=== PATIENT | male | born 1995 | race Asian ===

== ENCOUNTER 2019-10-07 11:56 | Inpatient (IN) | payer MEDICAID, OTHER ==
[~2019-10-07] VITALS: Ht 170.2 cm; Wt 59.6 kg
[2019-10-07] MEDS ORDERED: LORazepam 2 MG/ML VIAL IM ONE ×2 (12:15→19:15)
[2019-10-07] MEDS ORDERED: HALOPERIDOL LACTATE 5 MG/ML VIAL IM ONE ×3 (12:15→19:15)
[2019-10-07] MEDS ORDERED: DiphenhydrAMINE HCL 50 MG/ML VIAL IM ONE ×2 (12:15→19:15)
[2019-10-07] MEDS ORDERED: HALOPERIDOL 5 MG TABLET PO PRN (14:30)
[2019-10-07] MEDS ORDERED: ZOLPIDEM TARTRATE 10 MG TABLET PO PRN (14:30)
[2019-10-07] MEDS ORDERED: LORazepam 2 MG TABLET PO PRN (14:30)
[2019-10-07 18:06] VITALS: BP 136/73
[2019-10-07] MEDS ORDERED: INFLUENZA VIRUS VACCINE QVS 2019-20 (3YR+)/PF 60 MCG/0.5 ML SYRINGE IM ONE (20:30)
[2019-10-08 08:23] VITALS: BP 112/67
[2019-10-08] MEDS: RisperiDONE 2 MG TABLET PO SCH ×2 (09:00→16:33)
[2019-10-08] MEDS ORDERED: ONDANSETRON HCL 4 MG TABLET PO PRN (09:45)
[2019-10-08] MEDS ORDERED: ACETAMINOPHEN 325 MG TABLET PO PRN (09:45)
[2019-10-08] MEDS ORDERED: MAGNESIUM HYDROXIDE SUSPENSION 30 ML UDCUP PO PRN (09:45)
[2019-10-08] MEDS ORDERED: BACITRACIN 28.4 GM OINTMENT TP PRN (09:45)
[2019-10-08] MEDS ORDERED: CloNIDine HCL 0.1 MG TABLET PO PRN (09:45)
[2019-10-08] MEDS ORDERED: ALBUTEROL SULFATE HFA 90 MCG/PUFF 8 GM INHALER IH PRN (09:45)
[2019-10-08] MEDS ORDERED: IBUPROFEN 600 MG TABLET PO PRN (09:45)
[2019-10-08] MEDS ORDERED: BENZOCAINE/MENTHOL LOZENGE MM PRN (09:45)
[2019-10-08] MEDS ORDERED: LOPERAMIDE HCL 2 MG CAPSULE PO PRN (09:45)
[2019-10-08] MEDS ORDERED: DOCUSATE SODIUM 100 MG CAPSULE PO PRN (09:45)
[2019-10-08] MEDS ORDERED: OMEPRAZOLE 20 MG CAPSULE PO PRN (09:45)
[2019-10-08] MEDS ORDERED: PETROLATUM,WHITE 28 GM JELLY TP PRN (09:45)
[2019-10-08] MEDS ORDERED: MAG HYDROX/AL HYDROX/SIMETH ES 30 ML SUSPENSION UDCUP PO PRN (09:45)
[2019-10-08 16:01] VITALS: BP 106/68
[2019-10-09] VITALS: BP 112/69
[2019-10-09 08:27] VITALS: BP 128/70
[2019-10-09] MEDS: RisperiDONE 2 MG TABLET PO SCH ×2 (09:00→16:00)
[2019-10-09 16:00] VITALS: BP 114/87
[2019-10-10 06:24] VITALS: BP 129/72
[2019-10-10 08:02] VITALS: BP 132/77
[2019-10-10] MEDS: RisperiDONE 2 MG TABLET PO SCH ×2 (08:15→16:58)
[2019-10-10 16:03] VITALS: BP 131/78
[2019-10-11 04:53] VITALS: BP 132/78
[2019-10-11 08:00] VITALS: BP 118/71
[2019-10-11] MEDS: RisperiDONE 2 MG TABLET PO SCH ×2 (08:18→17:00)
[2019-10-11 16:01] VITALS: BP 132/76
[2019-10-12 04:19] VITALS: BP 109/80
[2019-10-12 08:12] VITALS: BP 123/76
[2019-10-12] MEDS: RisperiDONE 2 MG TABLET PO SCH ×2 (09:00→16:00)
[2019-10-12 16:01] VITALS: BP 113/72
[2019-10-13 02:42] VITALS: BP 117/78
[2019-10-13 08:04] VITALS: BP 104/54
[2019-10-13 08:39] LABS: HEMATOCRIT 50.1 % (41-53); HEMOGLOBIN 17.2 g/dL (13.5-17.5); MEAN CORPUSCULAR HEMOGLOBIN 32.6 pg (26.0-34.0); MEAN CORPUSCULAR HGB CONC 34.4 G/dL (31.0-37.0); MEAN CORPUSCULAR VOLUME 95 fL (80-100); PLATELET COUNT (AUTO) 283 K/uL (150-450); RED CELL DISTRIBUTION WIDTH 12.2 % (11.5-14.5)
[2019-10-13] MEDS: RisperiDONE 2 MG TABLET PO SCH ×2 (08:46→16:39)
[2019-10-13 08:59] LABS: ANION GAP 5 mmol/L (8-16); BAND NEUTROPHILS % (MANUAL) 1 % (0-5); CALCIUM, TOTAL 9.2 mg/dL (8.8-10.5); CARBON DIOXIDE 32 mmol/L (22-29); CHLORIDE 102 mmol/L (98-107); CHOL/HDL RATIO 3.7 (4.2-7.3); CHOLESTEROL 153 mg/dL (131-200); EOSINOPHILS % (MANUAL) 2 % (1-6); GLOMERULAR FILTR. RATE CALC > 60 mL/min (>60); GLUCOSE,RANDOM 83 mg/dL (70-110); HDL CHOLESTEROL 41 mg/dL (40-60); LDL CHOL (CALC.) 96 mg/dL (0-130); LYMPHOCYTES % (MANUAL) 27 % (22-44); MONOCYTES % (MANUAL) 2 % (2-9); PHOSPHORUS 3.8 mg/dL (2.5-4.9); POTASSIUM 4.9 mmol/L (3.5-5.1); SEGMENTED NEUTROPHILS % 68 % (40-70); SODIUM SERUM 139 mmol/L (136-145); THYROID STIMULATING HORMONE 1.22 uIU/mL (0.36-3.74); TRIGLYCERIDES 78 mg/dL (15-150); UREA NITROGEN, BLOOD 8 mg/dL (7-18)
[2019-10-13] MEDS ORDERED: HALOPERIDOL LACTATE 5 MG/ML VIAL IM PRN (12:45)
[2019-10-13 16:01] VITALS: BP 138/75
== END 2019-10-13 16:45 | disposition left against medical advice (07) | DRG 750 ==
LOC: EMS 12:00 → B3A 15:30
PROVIDERS: ADMIT Psychiatry & Neurology Psychiatry; ATTEND Psychiatry & Neurology Psychiatry
DX: F20.0 Paranoid schizophrenia (principal); F12.90 Cannabis use, unspecified, uncomplicated; G47.00 Insomnia, unspecified; K59.00 Constipation, unspecified; F41.9 Anxiety disorder, unspecified; Z79.899 Other long term (current) drug therapy; Z53.29 Procedure and treatment not carried out because of patient's decision for other reasons
CPT/HCPCS: 83735; 84100; 84443; 85007; 90686; J1200; J1630; J2060